=== PATIENT | female | born 1970 | race Caucasian/White ===

== ENCOUNTER 2016-09-22 13:27 | Emergency (ER) | payer OTHER, MEDICARE ==
[~2016-09-22] VITALS: Ht 162.6 cm; Wt 106.6 kg
--- NOTE | 2016-09-22 15:01 | RADIOLOGY REPORT ---
EXAMINATION: XR KNEE, LEFT CLINICAL INFORMATION: Pain left knee. Assess for fracture or dislocation. COMPARISON: None. TECHNIQUE: AP, lateral and 2 oblique views of the left knee were obtained. FINDINGS: There is normal alignment of the patellofemoral and knee joints. There is mild narrowing of the medial compartment of the knee joint with medial osteophytes. There is mild narrowing of the patellofemoral joint. No fractures are demonstrated. Bone mineralization appears normal. There is soft tissue swelling in the suprapatellar region consistent with a joint effusion. IMPRESSION: 1. There are no acute fractures or subluxations. 2. There is a suprapatellar joint effusion.
--- NOTE | 2016-09-22 15:04 | ED UPPER/LOWER EXTREMITY COMPL ---
History of Present Illness General Chief Complaint: Lower Extremity Injury Stated Complaint: LFT KNEE PAIN Source: patient Exam Limitations: no limitations Vital Signs & Intake/Output Vital Signs & Intake/Output Vital Signs Date Time Temp Pulse Resp B/P Pulse O2 O2 Flow FiO2 Ox Delivery Rate 09/22 1334 97.1 86 18 139/81 99 Room Air Allergies Coded Allergies: No Known Allergies (09/22/16) Reconcile Medications Naproxen (Naprosyn) 500 MG TABLET 1 TAB PO BID PRN pain and inflammation Triage Note: 46 Y/O FEMALE C/O L KNEE PAIN SINCE LAST WEEKEND; UNSURE WHAT HAPPENED BUT STATES "IT FELT LIKE THE KNEECAP POPPED OUT AND THEN BACK". PT STATES SHE HAS TO KEEP KNEE STRAIGHT WHEN SHE WALKS. Triage Nurses Notes Reviewed? yes HPI: This patient is a 46-year-old female who presented to the emergency department today for evaluation of left knee pain. She reported that either Sunday or Sunday. She was ending down to help her knees with something, and she felt like her kneecap, "went down and my femur displaced." The patient reported that she has been having 7 out of 10-10 out of 10 pain in the inside and back of her left knee. Since that time. It is worse with ambulation and better with rest. The patient reported that she feels like something "poor." She denied any radiation of the pain. She did report some numbness and tingling in her foot. She denied any back pain or urinary symptoms. The patient denied any hip pain or ankle pain. The patient reported that she has had multiple surgeries on her right knee. (GRECIA COOPER PA-C) Past History Travel History Traveled to [place] past 21 day No Medical History Any Pertinent Medical History? 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 No (GRECIA COOPER PA-C) Review of Systems Review of Systems Constitutional: Reports: no symptoms. EENTM: Reports: no symptoms. Respiratory: Reports: no symptoms. Cardiovascular: Reports: no symptoms. Gastrointestinal/Abdominal: Reports: no symptoms. Musculoskeletal: Reports: see HPI. Skin: Reports: no symptoms. Neurological/Psychological: Reports: no symptoms. All Other Systems: Reviewed and Negative (GRECIA COOPER PA-C) Physical Exam Physical Exam General Appearance: well developed/nourished, no apparent distress, alert, awake Comments: Well-developed well-nourished person in no acute distress HEENT: Head normocephalic, moist mucous membranes Neck: Supple, no lymphadenopathy Back: Antalgic gait Respiratory: No respiratory distress. Speaking in full sentences Left lower extremity: No effusions to the knee or ankle. No overlying ecchymosis or erythema. No bony or muscular deformities noted. Tenderness to palpation over the medial aspect of the knee. Range of motion of the knee, limited due to pain. Full range of motion of the ankle. Dorsalis pedis and posterior tibialis pulses 2+ and strong. Neuro: Alert and oriented x3 Psych: Mood affect normal, normal memory normal judgment. Skin: Warm and dry, no rash on exposed skin (GRECIA COOPER PA-C) Progress Differential Diagnosis: arterial insufficiency, cellulitis, compartment syndrome , contusion, dislocation, DVT, fracture, gout, septic arthritis, sprain, tendon injury Plan of Care: Orders Procedure Date/time Status Durable Medical Equipment 09/22 9965 Active Diagnostic Imaging: Viewed by Me: Radiology Read. Discussed w/RAD: Radiology Read. Radiology Impression: PATIENT: HORACIO SUN PRESENT AGE: 46 PATIENT ACCOUNT NO: [id number] : 70 LOCATION: [facility] ORDERING PHYSICIAN: LISA TERAN MD SERVICE DATE: 09/22/162833 EXAM TYPE: RAD - XRY -KNEE COMPLETE LEFT EXAMINATION: XR KNEE, LEFT CLINICAL INFORMATION: Pain left knee. Assess for fracture or dislocation. COMPARISON: None. TECHNIQUE: AP, lateral and 2 oblique views of the left knee were obtained. FINDINGS: There is normal alignment of the patellofemoral and knee joints. There is mild narrowing of the medial compartment of the knee joint with medial osteophytes. There is mild narrowing of the patellofemoral joint. No fractures are demonstrated. Bone mineralization appears normal. There is soft tissue swelling in the suprapatellar region consistent with a joint effusion. IMPRESSION: 1. There are no acute fractures or subluxations. 2. There is a suprapatellar joint effusion. 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 <Electronically signed in Other Vendor System> SIGNED BY: ALLEN LIANG MD 09/22/16 1501 (GRECIA COOPER PA-C) Departure Departure Disposition: HOME OR SELF CARE Condition: Stable Clinical Impression Primary Impression: Knee pain Qualifiers: Laterality: left Chronicity: unspecified Qualified Code: M25.562 - Pain in left knee Referrals: LES BURKS,MARLEN (PCP/Family) DEANGELO BURKS,MATEO Campbell Additional Instructions: Take medication as prescribed for pain. Please stay off of your knee and use the knee immobilizer as well as crutches provided to you. You may ice the affected area for 15-20 minutes, 3-4 times a day. Elevate the knee when possible. Please call the orthopedic physician for further evaluation. Return for any worsening symptoms or concerns. Departure Forms: Customer Survey General Discharge Information Prescriptions: Current Visit Scripts Naproxen (Naprosyn) 1 TAB PO BID PRN pain and inflammation #20 TAB (GRECIA COOPER PA-C) PA/PERSONAL CARE SERVICE PROVIDER Co-Sign Statement Statement: ED Attending supervision documentation- [] I saw and evaluated the patient. I have also reviewed all the pertinent lab results and diagnostic results. I agree with the findings and the plan of care as documented in the PA's/PERSONAL CARE SERVICE PROVIDER's documentation. [X] I have reviewed the ED Record and agree with the PA's/PERSONAL CARE SERVICE PROVIDER's documentation. [] Additions or exceptions (if any) to the PAs/PERSONAL CARE SERVICE PROVIDER's note and plan are summarized below: [] (PARUL BURKS,LISA)
[2016-09-22] MEDS ORDERED: NAPROSYN500 M1 PO (15:14)
== END 2016-09-22 15:35 ==
LOC: ERH 13:27
DX: M25.562 Pain in left knee (principal)
CPT/HCPCS: 73562-LT; J1885